=== PATIENT | female | born 1995 | race African-American/Black ===

== ENCOUNTER → 2019-08-14 | Outpatient (CLI) | payer BC ==
--- NOTE | 2019-08-14 10:15 | KCIC ---
EXAM: Brain MRI without contrast. HISTORY: Migraines. TECHNIQUE: Multiplanar, multisequence magnetic resonance imaging of the brain was performed without contrast. COMPARISON: None. FINDINGS: There is no restricted diffusion to suggest acute or subacute infarction. There is no susceptibility effect to suggest hemorrhage. There is no mass effect or midline shift. There is no hydrocephalus. No suspicious white matter lesion is seen. The orbits, paranasal sinuses mastoid air cells are unremarkable. There are normal flow voids within the cerebral vessels. IMPRESSION: No acute intracranial finding. Electronically signed by: Renetta Boyce MD (08/14/2019 10:12 AM) [id number]
== END ==
LOC: KCIC MRI 08:43
PROVIDERS: ATTEND Psychiatry & Neurology Neurology with Special Qualifications in Child Neurology
DX: G43.009 Migraine without aura, not intractable, without status migrainosus (principal); R20.0 Anesthesia of skin; R53.1 Weakness; R42 Dizziness and giddiness; R41.3 Other amnesia
CPT/HCPCS: 70551